=== PATIENT | female | born 1980 | race Caucasian/White ===

== ENCOUNTER 2021-09-27 04:48 | Emergency (ER) | payer OTHER, SELFPAY ==
[2021-09-27] VITALS (7 sets, daily range): BP systolic 123–168; BP diastolic 62–91; PULSE 61–84; RESP 16–18; TEMP 36.6–36.7; O2SAT 92–100; BMI 35.2
--- NOTE | 2021-09-27 04:59 | ECG_ITS ---
APPROVED REPORT Exam: Resting ECG HR:71 bpm ECG Measurements Heart Rate 71 AXES NH 148 P 30 QRSd 86 QRS -2 QT 410 T 30 QTc 445 Conclusion Normal sinus rhythm Late r wave progression Abnormal ECG Electronically signed by : Robbie Nelson MD 09/27/2021 20:21:05
--- NOTE | 2021-09-27 05:08 | CT_ITS ---
PROCEDURE INFORMATION: Exam: CT Abdomen And Pelvis With Contrast Exam date and time: 09/27/2021 5:08 AM Age: 41 years old Clinical indication: Abdominal pain; Prior surgery; Surgery type: Gastric sleeve; Additional info: Ruq pain TECHNIQUE: Imaging protocol: Computed tomography of the abdomen and pelvis with contrast. Radiation optimization: All CT scans at this facility use at least one of these dose optimization techniques: automated exposure control; mA and/or kV adjustment per patient size (includes targeted exams where dose is matched to clinical indication); or iterative reconstruction. Contrast material: ISOVUE; Contrast volume: 75 ml; Contrast route: IV; COMPARISON: CR XR CHEST 2V 09/27/2021 5:06 AM FINDINGS: Lungs: Minimal dependent right basal atelectasis. Liver: Normal. No mass. Gallbladder and bile ducts: Normal. No calcified stones. No ductal dilation. Pancreas: Normal. No ductal dilation. Spleen: Normal. No splenomegaly. Adrenal glands: Normal. No mass. Kidneys and ureters: Normal. No hydronephrosis. Stomach and bowel: Prior gastric surgery. Few colonic diverticula. Appendix: No evidence of appendicitis. Intraperitoneal space: Unremarkable. No free air. No significant fluid collection. Vasculature: Unremarkable. No abdominal aortic aneurysm. Lymph nodes: Unremarkable. No enlarged lymph nodes. Urinary bladder: Unremarkable as visualized. Reproductive: 3.8 cm in greatest dimension right ovarian cyst. Bones/joints: Minor multilevel spondylosis. Soft tissues: Unremarkable. IMPRESSION: 1. No acute abdominal or pelvic visceral pathology. 2. Right ovarian cyst. 3. Minimal dependent right basal atelectasis. 4. Other nonacute findings above.
--- NOTE | 2021-09-27 05:08 | XR_ITS ---
PROCEDURE INFORMATION: Exam: XR Chest Exam date and time: 09/27/2021 5:08 AM Age: 41 years old Clinical indication: Left-sided; Patient HX: Left sided chest pain, nonsmoker, HX of covid; Additional info: Pain under right breast TECHNIQUE: Imaging protocol: XR of the chest. Views: 2 views. COMPARISON: No relevant prior studies available. FINDINGS: Lungs: Unremarkable. No consolidation. Pleural spaces: Unremarkable. No pleural effusion. No pneumothorax. Heart/Mediastinum: Unremarkable. No cardiomegaly. Bones/joints: Unremarkable. IMPRESSION: No acute findings.
[2021-09-27 06:13] LABS: Chloride 103 mmol/L (98-107); Potassium 3.5 mmoL/L (3.5-5.1); Sodium 142 mmol/L (136-145)
[2021-09-27 06:16] LABS: Alanine Aminotransferase 74 U/L (12-78); Alkaline Phosphatase 102 U/L (38-126); Amylase 67 U/L (30-110); Anion Gap 12.5 mEq/L (5-15); Aspartate Amino Transferase 231 U/L (14-36); Bilirubin,Direct 0.3 mg/dl (0.0-0.4); Bilirubin,Total 1.3 mg/dl (0.2-1.3); Bilirubin,Unconjugated 1.1 mg/dL (0.0-1.1); Blood Urea Nitrogen 15 mg/dl (7-17); Calcium 9.6 mg/dl (8.4-10.2); Carbon Dioxide 30 mmol/L (22.0-30.0); Creatinine Clearance Estimated 130 mL/min (50-200); Estimated Glomerular Filt Rate 68 ml/min (>60); GFR (African American) 83 ML/MIN (>60); Glucose 89 mg/dl (74-100)
[2021-09-27 06:17] LABS: Albumin Level 4.5 g/dl (3.5-5.0); Lipase 66 U/L (23-300); Total Protein,Serum 7.6 g/dl (6.3-8.2)
--- NOTE | 2021-09-27 06:17 | HMH.EDGENADL ---
ED Disposition Clinical Impression: Cholelithiasis Qualifiers: Cholelithiasis location: gallbladder Cholecystitis presence: without cholecystitis Biliary obstruction: without biliary obstruction Qualified Code(s): K80.20 - Calculus of gallbladder without cholecystitis without obstruction Abdominal pain Qualifiers: Abdominal location: right upper quadrant Qualified Code(s): R10.11 - Right upper quadrant pain Disposition: Home, Self-Care Condition on Discharge: Good Instructions: DI for Gallstones Additional Instructions: call surg for follow up Referrals: Lidia Man [Primary Care Provider] - Ezequiel Saravia MD [Staff Physician] - Phill Villalba MD [Staff Physician] - - Critical Care Critical Care Time: No Attestation: On 09/27/21, the high probability of a clinically significant, sudden or life threatening deterioration of the following system(s) required my full and direct attention, intervention and personal management. The time I documented below is in addition to time spent performing reported procedures but includes the following listed in this critical care notation. Medical Decision Making - Medical Records Medical records reviewed: Yes: I reviewed the patient's medical records. - Fer Inquiry Pt receiving controlled substance: No Vital Signs: 09/27/21 04:50 09/27/21 05:30 09/27/21 06:01 Temperature 98.0 F Temperature Source Oral Pulse Rate 70 64 Pulse Rate [Right Radial] 74 Respiratory Rate 16 Blood Pressure 168/62 H 123/73 Blood Pressure [Right Arm] 159/84 H Blood Pressure Mean [Right Arm] 109 Blood Pressure Source [Right Arm] Automatic Cuff Blood Pressure Position [Right Arm] Sitting 02 Sat by Pulse Oximetry 98 97 96 Oxygen Delivery Method Room Air Room Air Room Air 09/27/21 06:34 09/27/21 07:00 09/27/21 07:30 Temperature Temperature Source Pulse Rate 62 84 61 Pulse Rate [Right Radial] Respiratory Rate Blood Pressure 138/83 129/70 130/80 Blood Pressure [Right Arm] Blood Pressure Mean [Right Arm] Blood Pressure Source [Right Arm] Blood Pressure Position [Right Arm] 02 Sat by Pulse Oximetry 97 92 L 100 Oxygen Delivery Method Room Air - Lab Data Lab results reviewed: Yes: I reviewed the patient's lab results. Lab Results 09/27/21 05:40: WBC 8.3, RBC 4.82, Hgb 13.9, Hct 41.5, MCV 86.1, MCH 28.8, MCHC 33.5, RDW 13.5, Plt Count 323, MPV 8.9, Neut % (Auto) 72.2, Lymph % (Auto) 23.3, George % (Auto) 3.7, Eos % (Auto) 0.5, Baso % (Auto) 0.3, Neut # (Auto) 6.0, Lymph # (Auto) 1.9, George # (Auto) 0.3, Eos # (Auto) 0.0, Baso # (Auto) 0.0, ESR 17 09/27/21 05:40: Sodium 142, Potassium 3.5, Chloride 103, Carbon Dioxide 30, Anion Gap 12.5, BUN 15, Creatinine 0.90, Estimated Creat Clear 130, Estimated GFR 68, Est GFR ( Amer) 83, Glucose 89, Calcium 9.6, Total Bilirubin 1.3, Direct Bilirubin 0.3, Conjugated Bilirubin 0.0, Indirect Bilirubin 1.0 H, Unconjugated Bilirubin 1.1, AST 231 H, ALT 74, Alkaline Phosphatase 102, Troponin I < 0.01, C-Reactive Protein 1.8, Total Protein 7.6, Albumin 4.5, Amylase 67, Lipase 66, Procalcitonin < 0.030 09/27/21 05:40: Serum HCG, Qual Negative Result diagrams: 09/27/21 05:40 09/27/21 05:40 Orders (Tests/Meds): ED MEDICATIONS Generic Name Dose Route Start Last Admin Trade Name Freq PRN Reason Stop Dose Admin Sodium Chloride 8 ml 09/27/21 05:08 Sodium Chloride 0.9% 10ml Vial IV 10/27/21 05:07 NEEDED PRN dilute pepcid Discontinued Medications Generic Name Dose Route Start Last Admin Trade Name Freq PRN Reason Stop Dose Admin Famotidine 20 mg 09/27/21 05:08 09/27/21 05:40 Famotidine 20mg/2ml Vial IV 09/27/21 05:09 20 mg ONCE ONE Administration Sodium Chloride 1,000 mls @ 999 mls/hr 09/27/21 05:15 09/27/21 05:40 Sod Chlor 0.9% 1000ml Bag IV 09/27/21 06:15 999 mls/hr .Q1H1M HAYDER Administration Iopamidol 75 ml 09/27/21 06:22 09/27/21 06:24 Iopam
[2021-09-27 06:20] LABS: HCG Qualitative, Serum Negative (Negative)
[2021-09-27 06:23] LABS: C-Reactive Protein 1.8 mg/L (0-4)
[2021-09-27 06:24] LABS: Basophils % 0.3 % (0.1-2.0); Eosinophils % 0.5 % (0.1-12.0); Hematocrit 41.5 % (37.0-47.0); Hemoglobin 13.9 g/dL (12.2-16.2); Lymphocytes # 1.9 K/mm3 (0.7-4.5); Lymphocytes % 23.3 % (10-50); Mean Corpuscular HGB Conc 33.5 g/dL (31.8-35.4); Mean Corpuscular Hemoglobin 28.8 pg (27.0-31.2); Mean Corpuscular Volume 86.1 fl (81-99); Mean Platelet Volume 8.9 fl (7.4-10.4); Monocytes # 0.3 K/mm3 (0.1-1.0); Monocytes % 3.7 % (1.7-9.3); Neutrophils % 72.2 % (37.0-80.0); Platelet Count 323 K/mm3 (142-424); Red Blood Count 4.82 M/mm3 (4.20-5.40); Red Cell Distribution Width 13.5 % (11.5-17.5); White Blood Count 8.3 K/mm3 (4.8-10.8)
[2021-09-27 06:32] LABS: Troponin I < 0.01 ng/ml (0.00-0.034)
[2021-09-27 06:50] LABS: Erythrocyte Sedimentation Rate 17 mm/hr (0-20)
--- NOTE | 2021-09-27 06:51 | US_ITS ---
PROCEDURE: US GALLBLADDER CLINICAL INDICATION: rt upper abd pain COMPARISON: CT CT ABDOMEN PELVIS W CON from 09/27/2021 FINDINGS: Pancreas: Pancreas is not well delineated to body habitus and overlying bowel gas. Liver: Unremarkable. There is appropriate direction of blood flow within a non dilated portal vein. Right kidney: Unremarkable appearing. No hydronephrosis. Gallbladder: There are small layering stones within the gallbladder. The gallbladder is slightly distended at 10 x 3.7 cm. No gallbladder wall thickening, pericholecystic fluid, or biliary dilatation. Common bile duct measures 5 mm. IMPRESSION: Cholelithiasis with mild gallbladder distension. No wall thickening, pericholecystic fluid, or biliary dilatation. Dictated by: Melo White MD 09/27/2021 08:22 Melo White MD in [facility] 09/27/2021 08:22
--- NOTE | 2021-09-27 07:14 | PC.NURSE ---
pt resting offers no c/o at present. pt states last po intake yesterday 9pm, hotdog and pie
[2021-09-27 07:42] LABS: Procalcitonin < 0.030 ng/mL (0.0-2.0)
--- NOTE | 2021-09-27 07:50 | PC.NURSE ---
Pt is resting comfortably well in bed.
--- NOTE | 2021-09-27 07:53 | PC.NURSE ---
Pt going to ultra sound.
--- NOTE | 2021-09-27 07:55 | PC.NURSE ---
Spoke with ER per RAD it was okay to take C collar off. Pt is in room resting.
== END 2021-09-27 08:41 | disposition home or self-care (01) ==
PROVIDERS: Emergency Provider Emergency Medicine; PCP Emergency Medicine
DX: K80.20 Calculus of gallbladder without cholecystitis without obstruction (principal); M54.50 Low back pain, unspecified
CPT/HCPCS: 71046; 74177; 76705; 80048; 80076; 82150; 83690; 84145; 84484; 84703; 85025; 85651; 86140; 93005; 96365; 96375; 99283; J2405; Q9967

== ENCOUNTER → 2021-09-30 16:17 | Outpatient (CLI) | payer OTHER, SELFPAY | PROVIDERS: PCP Emergency Medicine; Visit Provider Nurse Practitioner Family | DX: Z01.812 Encounter for preprocedural laboratory examination (principal); Z20.822 Contact with and (suspected) exposure to COVID-19; K80.20 Calculus of gallbladder without cholecystitis without obstruction | CPT/HCPCS: C9803; U0003; U0005 ==

== ENCOUNTER 2021-10-02 07:47 | Day surgery (SDC) | payer OTHER, SELFPAY ==
[2021-09-28 10:58] VITALS: BMI 35.2
[2021-10-02] VITALS (11 sets, daily range): BP systolic 118–140; BP diastolic 74–84; PULSE 53–81; RESP 12–18; TEMP 36.3–43; O2SAT 93–99
--- NOTE | 2021-10-02 08:59 | HMH.ANESCL ---
[facility] Anesthesia Checklist - Patient Identification Patient Identification: Arm Band - Structural Data Admitted From: Home Planned Operative Procedure/s: laparoscopic cholecystectomy Consent for Planned Operative Procedure(s) Verified: Yes Verified Documents: Surgical Consent, History and Physical - NPO Status Verified Time NPO: 00:00 - Additional verifications Anesthesia Reactions: No Hx Blood Transfusions: No Blood Transfusion Reaction: No - Airway Assessment C-Spine Mobility Assessed: Yes (mp2) TMJ Mobility Assessed: Yes Dentition: Good Dentition - Neurological Assessment Level of Consciousness: Awake, Alert - Anesthesia Plan Anesthesia Risk discussed: Yes Anesthesia Plan: Verified ASA Class: II Anesthesia Type: General [facility] History I have reviewed the patient's past medical history: Yes Medical History: Denies:: Cancer, Diabetes Mellitus Type 1, Diabetes Mellitus Type 2, Internal Pacemaker, MRSA, Seizures *Have you ever received a pneumonia vaccine?: No *Have you received a flu vaccine this season?: No Other Medical History: Denies: Blood Transfusion Reaction Anesthesia experience/problems:: nac Other Surgeries: Yes: Diagnostic Lap, Other. No: Pacemaker Amputation: No Fractures: No - *Social History Last grade of school completed: High school graduate Smoking Status: Never smoker Alcohol Intake: current Alcohol Intake Frequency:: holidays/special occasions only Substance Use Type: denies use *Occupational Status:: employed Housing: house Household Members: family *Travel in the last 8 weeks: None Family Hx:: Cancer, Coronary Artery Disease, Diabetes, Heart Attack, Stroke
--- NOTE | 2021-10-02 10:09 | P.OP_ITS ---
Date of procedure: 10/02/21 Pre-op Diagnosis:: Symptomatic gallstones Post-op Diagnosis:: Same Procedure performed:: Laparoscopic cholecystectomy Surgeon:: Ezequiel Saravia MD COMMUNITY OUTREACH DIRECTOR:: Other Anesthesia: GETA Estimated blood loss (mL): 20 Clinical Note:: Patient is a very pleasant 41-year-old female. 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 She had undergone laparoscopic gastric sleeve in September 2018 in [place] by Dr. Alexis Robles. By her own volition prior to that and subsequently after bariatric surgery she has had about an 80 pound weight loss. She states that for some time she is having some occasional pain and discomfort in the right upper quadrant. She describes it similar to a rock in her stomach. About a week or so ago she had an episode of severe pain. On 09/27/2021 she awoke with very severe back pain with associated vomiting and radiation to her back and into her chest area. She was seen and ev aluated in the emergency department. She was found to have an AST of 231. CT scan was unremarkable. She underwent gallbladder ultrasound which revealed mild gallbladder distention with gallstones. Operative findings:: She has a distended gallbladder. She had some omental adhesions to the anterior peritoneal cavity in the right upper quadrant Operative note:: Patient was taken to the operating room. She was given preoperative intravenous antibiotic. In the operating room she was placed in a supine position. General anesthesia was induced via endotracheal tube. Abdomen was prepped and draped in the standard surgical fashion. Subumbilical skin incision was made. Dissection was carried down to fascia. While performing abdominal wall lift Veress needle was inserted and CO2 pneumoperitoneum was achieved to 15 mmHg. A 10 mm trocar was inserted at the umbilicus. Intraperitoneal contents were visualized. She was positioned in reverse Trendelenburg left side down. She had some omental adhesions to the peritoneum in the right upper quadrant. Therefore a 10 mm trocar was placed in the epigastrium. These adhesions were then taken down using QIANA ultrasonic robotic jose. A couple of 5 mm trochars were able to be inserted in the right upper quadrant. Gallbladder is grasped retracted anteriorly and superiorly over the dome of the liver. Infundibulum of the gallbladder was retracted anterior laterally. Dissection was carried out the neck of the gallbladder bluntly incising the visceral peritoneum. Dissection was carried out identifying the cystic duct and cystic artery. Cystic duct was isolated, multiply clipped, and sharply divided. Cystic artery was carefully coagulated with QIANA ultrasonic harmonic jose and then divided. The gallbladder was dissected free from the liver in a retrograde fashion using QIANA ultrasonic harmonic jose. Gallbladder was placed within an Endo Catch retrieval device and removed from the peritoneal cavity via the umbilical trocar site which required some stretching of the fascial incision for delivery. Gallbladder fossa was inspected for hemostasis which was assured. Limited irrigation was per formed. Trochars were then removed as CO2 pneumoperitoneum was evacuated. Fascia at the umbilicus was closed with a couple of interrupted 0 Vicryl sutures. Local anesthetic was infiltrated. Skin incisions were closed with 4-0 Monocryl subcuticular fashion. Steri-Strips and dressings were applied. Condition: stable Disposition: PACU Specimens:: Gallbladder and contents Complications:: None immediately apparent
--- NOTE | 2021-10-02 10:19 | P.PN_ITS ---
[facility] Anesthesia Record Part I Intake, IV Amount: 1,000 Estimated blood loss (mL): 10 Urine output (mL): 0 Blood Pressure: 133/80 SaO2: 94 Pulse Rate: 81 Respiratory Rate: 15 Temperature: 98.7 F Patient is:: Drowsy Stable to PACU at:: 10:23
--- NOTE | 2021-10-02 12:28 | HMH.ANESII ---
[facility] Anesthesia Record Part II Discharge Time: 10:45 Destination: Home PACU nurse assessment reviewed?: Yes Patient Condition:: Good Anesthesia Complications:: None none Swallowing reflex intact?: Yes Cyanosis?: No Blood Pressure: 118/78 Pulse Rate: 58 Temperature: 97.7 F Mental Status: Alert & Oriented Pain level:: 0 Nausea and/or vomitting:: None Intake, IV Amount: 0
== END 2021-10-02 11:15 | disposition home or self-care (01) ==
LOC: OR 07:48
PROVIDERS: PCP Emergency Medicine; Visit Provider Surgery
PROC: 0FT44ZZ Resection of Gallbladder, Percutaneous Endoscopic Approach (ICD-10-PCS; CPT 47562; principal; 2021-10-02 09:15)
DX: K80.20 Calculus of gallbladder without cholecystitis without obstruction (principal); K66.0 Peritoneal adhesions (postprocedural) (postinfection); Z98.84 Bariatric surgery status; Z80.9 Family history of malignant neoplasm, unspecified; Z82.3 Family history of stroke; Z83.3 Family history of diabetes mellitus; Z82.49 Family history of ischemic heart disease and other diseases of the circulatory system
CPT/HCPCS: 47562; 96374; J2405; J2710

== ENCOUNTER 2023-04-07 09:23 | Emergency (ER) | payer OTHER, SELFPAY ==
[2023-04-07 09:24] VITALS: BP 158/86; PULSE 87; RESP 16; TEMP 36.6; O2SAT 98; BMI 40.7
--- NOTE | 2023-04-07 09:42 | EXP.UTC ---
Discharge Plan Disposition Patient Disposition: Home, Self-Care Condition: Good Prescriptions Prescriptions: New doxycycline hyclate 100 mg capsule 100 mg PO BID Qty: 20 0RF clotrimazole [Antifungal Ringworm] 1 % cream 1 applic topical BID 28 Days Qty: 45 1RF Rx Instructions: apply to rash as prescribed No Action liraglutide (weight loss) 3 MG/0.5 ML pen injector 3 mg SQ DAILY Label Comments: INJECT 3MG UNDER THE SKIN ONCE DAILY Referrals Follow up/Referrals: Provider,Referral, MD [Primary Care Provider] - See instructions Activity Restrictions/Add. Instructions Additional Instructions/Restrictions: Use topical cream on rash area as directed Make sure to follow up with your Family Doctor for the results or your Lyme Disease testing they can request the results Follow up with your Family Doctor if no improvement or any worsening of symptoms Return if needed Clinical Impressions Clinical Impression: Tick bite Instructions Patient Instructions: Doxycycline, Lyme Disease Test, DI for Tinea Corporis Discharge ED Provider: Ivone Reed [facility] [place] HPI General Stated complaint: rash,headache from pulling tick off leg Mode of Arrival: Ambulatory Source of Information: Patient Limitations: No Limitations Time Seen by Provider: 04/07/23 09:49 Description of Symptoms (Recalled from Triage Doc. by RN): Patient thinks she may have Lyme disease from a tick bite. Complaint of headache, rash neckache, and joint pain for 1 week. HEENT Symptoms (Recalled from RN notes): No Resp Symptoms (Recalled from RN notes): No Skin Symptoms (Recalled from RN notes): Yes MS Symptoms (Recalled from RN notes): Yes Functional Status (Recalled from RN notes): wnl History of Present Illness Provider Complaint: Patient concerned that she may have lyme disease States that she removed a tick several days ago from the back of her leg that she is unsure how long it had been there States that since removing the tick she has been having muscle and joint pain, headache chills and fatigue States that she has also broken out in rash on her back and neck and left upper leg States Related Data Home Medications Medication Instructions Recorded Confirmed liraglutide (weight loss) 3 mg/0.5 3 mg SQ DAILY Weight loss 09/27/21 10/29/21 mL (18 mg/3 mL) subcut pen injector Previous Rx's Medication Instructions Recorded clotrimazole 1 % topical cream 1 applic topical BID 4 weeks #45 04/07/23 (Antifungal Ringworm) grams doxycycline hyclate 100 mg capsule 100 mg PO BID #20 caps 04/07/23 Allergies Allergy/AdvReac Type Severity Reaction Status Date / Time No Known Allergies Allergy Verified 10/29/21 10:43 Worker's Comp Is this a Worker's Comp case?: No [facility] Disclaimer: The information contained in this section may have been updated after the patient was seen, as this information can be updated by other users. Social History Smoking Status: Never smoker second hand exposure: No alcohol intake: current substance use type: denies use current occupational status: employed Travel in the last 8 weeks: None household members: family housing: house current occupation: [employer] current occupational exposures/hazards: No caffeine: Yes ROS Obtained: Yes All systems reviewed & no additional complaints except as documented and Yes Systems reviewed as appropriate & no additional complaints except as documented Constitutional Constitutional: Reports system reviewed and no additional complaints, except as documented, Reports as per HPI, Reports body ache, Reports fatigue and Reports headache(s) ENT Ears, Nose, Mouth, and Throat: Reports system reviewed and no additional complaints, except as documented, Reports as per HPI and Reports headache(s) Cardiovascular Cardiovascular: Reports system reviewed and no additional complaints, except as documented and Reports as per HPI Respiratory Respirat
[2023-04-08 12:12] LABS: Lyme Ab CIA Positive (Negative); Lyme Ab IgM CIA Positive (Negative); Lyme IgG CIA Positive (Negative)
== END 2023-04-07 10:08 | disposition home or self-care (01) ==
PROVIDERS: Emergency Provider Nurse Practitioner
DX: R51.9 Headache, unspecified (principal); R21 Rash and other nonspecific skin eruption; M25.50 Pain in unspecified joint; T63.481A Toxic effect of venom of other arthropod, accidental (unintentional), initial encounter
CPT/HCPCS: 86618; 99212; G0463

== ENCOUNTER 2024-01-26 19:29 | Outpatient (CLI) | payer OTHER, SELFPAY | END 2024-01-26 23:59 | LOC: LAB.DROPOF 19:29 | PROVIDERS: PCP Student in an Organized Health Care Education/Training Program; Visit Provider Student in an Organized Health Care Education/Training Program | DX: J02.9 Acute pharyngitis, unspecified (principal) | CPT/HCPCS: 87070 ==

== ENCOUNTER 2024-04-23 09:28 | Outpatient (CLI) | payer OTHER, SELFPAY ==
[2024-04-23 18:37] LABS: Basophils % 0.7 % (0.1-2.0); Eosinophils # 0.1 K/mm3 (0.0-0.4); Eosinophils % 1.5 % (0.1-12.0); Hematocrit 35.9 % (37.0-47.0); Hemoglobin 11.3 g/dL (12.2-16.2); Lymphocytes # 1.8 K/mm3 (0.7-4.5); Lymphocytes % 35.7 % (10-50); Mean Corpuscular HGB Conc 31.5 g/dL (31.8-35.4); Mean Corpuscular Hemoglobin 24.1 pg (27.0-31.2); Mean Corpuscular Volume 76.3 fl (81-99); Monocytes # 0.2 K/mm3 (0.1-1.0); Monocytes % 4.5 % (1.7-9.3); Neutrophils # 2.9 K/mm3 (1.8-7.8); Neutrophils % 57.6 % (37.0-80.0); Platelet Count 287 K/mm3 (142-424); Red Blood Count 4.71 M/mm3 (4.20-5.40); Red Cell Distribution Width 16.5 % (11.5-17.5)
[2024-04-23 19:34] LABS: Alanine Aminotransferase 15 U/L (12-78); Albumin Level 3.8 g/dl (3.5-5.0); Albumin/Globulin Ratio 1.2 (1.1-1.8); Alkaline Phosphatase 81 U/L (38-126); Anion Gap 13.4 mEq/L (5-15); Aspartate Amino Transferase 25 U/L (14-36); Bilirubin,Total 0.8 mg/dl (0.2-1.3); Blood Urea Nitrogen 17 mg/dl (7-17); Calcium 9.2 mg/dl (8.4-10.2); Carbon Dioxide 27 mmol/L (22.0-30.0); Chloride 105 mmol/L (98-107); Chol/HDL Ratio 6.1 (1-3.5); Cholesterol 207 mg/dl (140-200); Estimated Glomerular Filt Rate 53 ml/min (>60); GFR (African American) 65 ML/MIN (>60); Globulin 3.2 g/dL (1.3-3.2); Glucose 91 mg/dl (74-100); HDL Cholesterol 34 mg/dl (40-60); Potassium 4.4 mmoL/L (3.5-5.1); Sodium 141 mmol/L (136-145); Triglycerides 194 mg/dl (30-150); VLDL Cholesterol 39 mg/dL (0-40)
[2024-04-23 19:45] LABS: Direct LDL Cholesterol 117.61 mg/dL (100-129)
[2024-04-23 19:46] LABS: 25-OH Vitamin D, Total 25.3 ng/mL (30-100); Free Thyroxine Index 3.9 ug/dL (5.93-13.13); T4 (Thyroxine) 10.8 ug/dl (5.53-11.0); Triiodothryronine (T3) Uptake 36 % (23.5-40.5)
[2024-04-23 19:59] LABS: Thyroid Stimulating Hormone 0.89 uIU/mL (0.465-4.68)
[2024-04-23 20:18] LABS: Hemoglobin A1C 5.8 % (4.0-6.0)
[2024-04-24 07:56] LABS: HIV (1&2) Antibody Rapid NON REACTIVE
[2024-04-25 11:10] LABS: HCV Ab Non Reactive (Non Reactive)
== END 2024-04-23 23:59 | disposition home or self-care (01) ==
LOC: LAB.DROPOF 04-26 09:29
PROVIDERS: PCP Student in an Organized Health Care Education/Training Program; Visit Provider Student in an Organized Health Care Education/Training Program
DX: Z11.59 Encounter for screening for other viral diseases (principal); Z13.21 Encounter for screening for nutritional disorder; Z11.4 Encounter for screening for human immunodeficiency virus [HIV]; E11.9 Type 2 diabetes mellitus without complications; E01.0 Iodine-deficiency related diffuse (endemic) goiter
CPT/HCPCS: 80050; 80053; 80061; 82306; 83036; 84436; 84443; 84479; 85025

== ENCOUNTER 2024-04-28 09:10 | Outpatient (CLI) | payer OTHER, SELFPAY ==
[2024-04-28 19:48] LABS: Chloride 109 mmol/L (98-107); Sodium 141 mmol/L (136-145)
[2024-04-28 19:49] LABS: Potassium 4.4 mmoL/L (3.5-5.1)
[2024-04-28 19:51] LABS: Alanine Aminotransferase 15 U/L (12-78); Alkaline Phosphatase 83 U/L (38-126); Anion Gap 10.4 mEq/L (5-15); Aspartate Amino Transferase 27 U/L (14-36); Bilirubin,Total 0.9 mg/dl (0.2-1.3); Blood Urea Nitrogen 12 mg/dl (7-17); Calcium 9.2 mg/dl (8.4-10.2); Carbon Dioxide 26 mmol/L (22.0-30.0); Estimated Glomerular Filt Rate 60 ml/min (>60); GFR (African American) 72 ML/MIN (>60); Glucose 119 mg/dl (74-100); Iron 52 ug/dL (37-170)
[2024-04-28 19:52] LABS: Albumin Level 3.8 g/dl (3.5-5.0); Albumin/Globulin Ratio 1.2 (1.1-1.8); Globulin 3.2 g/dL (1.3-3.2)
[2024-04-28 20:01] LABS: Total Iron Binding Capacity 419 ug/dL (265-497)
[2024-04-28 20:26] LABS: Ferritin 7.73 ng/ml (6.24-137)
[2024-04-28 21:01] LABS: Vitamin B12 213 pg/mL (239-931)
[2024-04-28 21:03] LABS: Folate 9.31 ng/mL
== END 2024-04-28 23:59 | disposition home or self-care (01) ==
LOC: LAB.DROPOF 04-29 09:10
PROVIDERS: PCP Student in an Organized Health Care Education/Training Program; Visit Provider Student in an Organized Health Care Education/Training Program
DX: D64.9 Anemia, unspecified (principal); R79.89 Other specified abnormal findings of blood chemistry
CPT/HCPCS: 80053; 82607; 82728; 82746; 83540; 83550

== ENCOUNTER 2024-05-03 12:53 | Outpatient (CLI) | payer OTHER, SELFPAY ==
--- NOTE | 2024-05-03 12:53 | MM_ITS ---
PROCEDURE INFORMATION: Exam: MG Bilateral Screening 3D Mammography Exam date and time: 05/03/2024 12:47 PM Age: 44 years old Clinical indication: Screening examination TECHNIQUE: Imaging protocol: Bilateral Screening tomosynthesis and 2D mammography including computer-aided detection (CAD) when performed. COMPARISON: MG MM DIG SCREENING MAMM BI W/CAD 05/03/2024 12:47 PM FINDINGS: MAMMOGRAPHY: Breast composition: There are scattered areas of fibroglandular density. Mass: None. Architectural distortion: None. Calcifications: No suspicious calcifications. Asymmetric density: None. Skin thickening: None. Axillary adenopathy: None. IMPRESSION: No mammographic evidence of malignancy. Annual screening is recommended unless otherwise clinically indicated. ASSESSMENT: BI-RADS Category 1: Negative
--- NOTE | 2024-05-03 12:53 | US_ITS ---
PROCEDURE: US TRANSVAGINAL CLINICAL INDICATION: AUB, abd pain COMPARISON: No exams were available for comparison FINDINGS: Transvaginal sonographic images of the pelvis were obtained. UTERUS: 9.7 cm x 4.3cmx 5.0cm midline with a combined endometrial thickness of 8.1mm. There are several small nabothian cyst. Within the cervix and lower uterine segment there is a mass that measures 4.7 cm x 1.5 cm x 2.0 cm. It has vascular flow. LEFT OVARY: 2.1cmx1.2cmx1.4cm with a volume of 1.8ml. RIGHT OVARY: 3.8 cmx 2.7 cmx2.4cm with a volume of 12.8ml. There is a follicle in the right ovary measuring 1.3 cm. Both ovaries are seen and appear normal. Doppler flow to both ovaries are seen. There is a small amount of fluid in the cul-de-sac. IMPRESSION: 1. Midline uterus normal in shape and size. The endometrium is normal measuring 8.1 mm. 2. Within the cervix and lower uterine segment is a mass measuring 4.7 cm x 1.5 cm x 2.0 cm. It has vascular flow and could represent an endocervical polyp or fibroid. Suggest a gynecology consult. 3. Both ovaries are seen and appear normal. There is a small follicle on the right ovary. 4. There is a small amount of fluid in the cul-de-sac. Dictated by: Amaury Saldaña MD 05/04/2024 05:11 Amaury Saldaña MD in [facility] 05/04/2024 05:11
== END 2024-05-03 23:59 | disposition home or self-care (01) ==
LOC: RAD 12:53
PROVIDERS: PCP Student in an Organized Health Care Education/Training Program; Visit Provider Student in an Organized Health Care Education/Training Program
DX: N93.9 Abnormal uterine and vaginal bleeding, unspecified (principal); R10.11 Right upper quadrant pain; Z12.31 Encounter for screening mammogram for malignant neoplasm of breast
CPT/HCPCS: 76830; 77063; 77067

== ENCOUNTER 2024-05-13 09:08 | Outpatient (CLI) | payer OTHER, SELFPAY ==
--- NOTE | 2024-05-13 09:09 | CT_ITS ---
FINAL REPORT TECHNIQUE: Pre-and postcontrast axial imaging of the abdomen and pelvis was obtained.This study was performed with techniques to keep radiation doses as low as reasonably achievable, (ALARA). Individualized dose reduction technique using automated exposure control or adjustment of mA and/or kV according to the patient's size were employed. CLINICAL HISTORY: abd pain, abd mass, AUB COMPARISON: 05/03/2024 FINDINGS: The lung bases are clear. The liver is enlarged. The gallbladder is absent. The spleen, adrenal glands, and pancreas are unremarkable. There is no hydronephrosis or solid renal mass. On precontrast imaging, no renal stones are identified. Kidneys demonstrate symmetric uptake of contrast. GI tract demonstrates postoperative changes of gastric sleeve. There is no lymphadenopathy or ascites. The appendix is normal. There is no evidence of small bowel obstruction. Remaining GI tract is without acute abnormality. There is a 3.5 cm hypodense left ovarian lesion, likely a functional cyst in a patient of this age. There is prominence of the cervix. Endocervical polyp not excluded. Exam is limited by patient body habitus. Physiologic free fluid is noted. There is no lymphadenopathy. No acute osseous changes are seen. IMPRESSION: Possible endocervical polyp or mass. Body habitus limits exam. Consider MRI of the pelvis with and without contrast using a female pelvis protocol. Enlarged liver. Reviewed, Interpreted and Dictated by Radha Conn MD Transcribed by Niru Wild Authenticated and [facility]
[2024-05-13] MEDS: SODIUM CHLORIDE 0.9% 10ML SYR (RAD ONLY) 10 ML IV (09:35)
[2024-05-13] MEDS: IOPAMIDOL-370 (76%);100ML BOTTLE 75 ML IV (09:35)
== END 2024-05-13 23:59 | disposition home or self-care (01) ==
LOC: RAD 09:09
PROVIDERS: PCP Student in an Organized Health Care Education/Training Program; Visit Provider Student in an Organized Health Care Education/Training Program
DX: R19.00 Intra-abdominal and pelvic swelling, mass and lump, unspecified site (principal); R10.2 Pelvic and perineal pain; N93.9 Abnormal uterine and vaginal bleeding, unspecified
CPT/HCPCS: 74178; Q9967

== ENCOUNTER 2024-06-02 10:18 | Outpatient (CLI) | payer OTHER, SELFPAY ==
[2024-06-02 10:47] LABS: Basophils % 0.6 % (0.1-2.0); Eosinophils % 0.7 % (0.1-12.0); Hematocrit 35.4 % (37.0-47.0); Hemoglobin 10.9 g/dL (12.2-16.2); Lymphocytes # 2.2 K/mm3 (0.7-4.5); Lymphocytes % 35.6 % (10-50); Mean Corpuscular Hemoglobin 23.7 pg (27.0-31.2); Mean Corpuscular Volume 76.5 fl (81-99); Mean Platelet Volume 8.9 fl (7.4-10.4); Monocytes # 0.3 K/mm3 (0.1-1.0); Monocytes % 5.6 % (1.7-9.3); Neutrophils # 3.5 K/mm3 (1.8-7.8); Neutrophils % 57.6 % (37.0-80.0); Platelet Count 311 K/mm3 (142-424); Red Blood Count 4.62 M/mm3 (4.20-5.40); Red Cell Distribution Width 16.5 % (11.5-17.5); White Blood Count 6.2 K/mm3 (4.8-10.8)
[2024-06-02 11:36] LABS: Alanine Aminotransferase 12 U/L (12-78); Albumin Level 3.5 g/dl (3.5-5.0); Albumin/Globulin Ratio 1.1 (1.1-1.8); Alkaline Phosphatase 75 U/L (38-126); Anion Gap 9.3 mEq/L (5-15); Aspartate Amino Transferase 21 U/L (14-36); Bilirubin,Total 0.7 mg/dl (0.2-1.3); Blood Urea Nitrogen 16 mg/dl (7-17); Carbon Dioxide 28 mmol/L (22.0-30.0); Chloride 109 mmol/L (98-107); Estimated Glomerular Filt Rate 67 ml/min (>60); GFR (African American) 82 ML/MIN (>60); Globulin 3.3 g/dL (1.3-3.2); Glucose 84 mg/dl (74-100); Potassium 4.3 mmoL/L (3.5-5.1); Sodium 142 mmol/L (136-145); Total Protein,Serum 6.8 g/dl (6.3-8.2)
[2024-06-02 11:57] LABS: HCG,Quantitative < 2 mIU/ml (0-5.42)
== END 2024-06-02 23:59 | disposition home or self-care (01) ==
LOC: LAB 16:26
PROVIDERS: PCP Student in an Organized Health Care Education/Training Program; Visit Provider Obstetrics & Gynecology
DX: N93.9 Abnormal uterine and vaginal bleeding, unspecified (principal)
CPT/HCPCS: 36415; 80053; 84702; 85025

== ENCOUNTER 2024-06-08 07:24 | Day surgery (SDC) | payer OTHER, SELFPAY ==
[2024-06-08] VITALS (10 sets, daily range): BP systolic 126–155; BP diastolic 75–95; PULSE 53–84; RESP 14–18; TEMP 36.2–37.1; O2SAT 94–100; BMI 40.7
[2024-06-08] MEDS: LACTATED RINGERS 1000ML 1,000 ML 25 ML IV (07:45)
[2024-06-08 07:59] LABS: POC Glucose,Bedside 95 (70-110)
--- NOTE | 2024-06-08 08:41 | P.PNANES_ITS ---
[facility] Disclaimer: The information contained in this section may have been updated after the patient was seen, as this information can be updated by other users. Medical History Lyme disease 2022 Body mass index (BMI) greater than 35 Infertility Diabetes diagnosed in 2015 Cholelithiasis Tick bite Surgical History Hx of cholecystectomy 2021 H/O gastric sleeve 2017 Family History Family/Other No significant family history Social History (Updated 06/08/24 @ 07:47 by Cornelio García RN) Smoking Status: Never smoker second hand exposure: No alcohol intake: never substance use type: denies use current occupational status: employed Travel in the last 8 weeks: None household members: family housing: house current occupation: [employer] current occupational exposures/hazards: No caffeine: Yes [facility] Anesthesia Checklist Patient Identification Patient Identification: Arm Band Structural Data Admitted From: Home Planned Operative Procedure/s: Hysteroscopy, D&C, Possible Myosure Ablation Consent for Planned Operative Procedure(s) Verified: Yes Verified Documents: Surgical Consent and History and Physical NPO Status Verified Time NPO: 00:00 Additional verifications Anesthesia Reactions: No Hx Blood Transfusions: No Blood Transfusion Reaction: No Airway Assessment Mallampati Score:: Class II C-Spine Mobility Assessed: Yes TMJ Mobility Assessed: Yes Dentition: Good Dentition Neurological Assessment Level of Consciousness: Awake, Alert and Appropriate Anesthesia Plan Anesthesia Risk discussed: Yes Anesthesia Plan: Verified ASA Class: II Anesthesia Type: General
--- NOTE | 2024-06-08 09:53 | EXP.ANES.I ---
[facility] Anesthesia Record Part I Anesthesia Record I Intake, IV Amount: 800 Hydration: Adequate Estimated blood loss (mL): 0 Urine output (mL): 0 Blood Pressure: 131/77 SaO2: 94 Pulse Rate: 81 Airway Patency: Patent Respiratory Rate: 14 Temperature: 97.5 F Patient is:: Awake and Stable Stable to PACU at:: 09:51
[2024-06-08 10:01] LABS: POC Glucose,Bedside 82 (70-110)
--- NOTE | 2024-06-08 10:17 | P.OP_ITS ---
Date of procedure: 06/08/24 Pre-op Diagnosis:: 1. Abnormal Uterine Bleeding 2. Endometrial cells on pap smear 3. Cervical mass on TVUS Post-op Diagnosis:: 1. Abnormal Uterine Bleeding 2. Endometrial cells on pap smear 3. Cervical mass on TVUS Procedure performed:: 1. Exam under anesthesia 2. Fractional dilation and curettage 3. Hysteroscopy, dilation, and MyoSure curettage Surgeon:: Alondra Schultz DO Transportation Assistant(s):: Renee Ray PHLEBOTOMY SERVICES TECHNICIAN:: Wyatt Zaragoza Anesthesia: GETA Estimated blood loss (mL): 50 Operative findings:: Findings: -EUA was non revealing secondary to habitus.. There were no significant support defects. -Hysteroscopy revealed diffusely proliferative endometrium Operative note:: The patient was taken back to the OR where general anesthesia was obtained.? She was placed in the dorsal lithotomy position using yellow fin stirrups and sterilely prepped and draped in the usual fashion.? An in and out catheter was used to drain her bladder.? A timeout was performed.? A weighted speculum was used to visualize this cervix, a single-tooth tenaculum was applied to the anterior lip of the cervix. A small serrated curette was used to collect endocervical curettings on a Telfa pad. This was passed off the operative field to be sent to pathology for further evaluation. The cervix was only slightly dilated to allow entry to the ectocervix and hydrodisection was used to get the scope the rest of the way into the cavity. The hysterscope was inserted and identifying structures such as the tubal ostia were difficult to visualize secondary to diffusely proliferative endometrium. The MyoSure device was used to obtain an endometrial curettings sample. The tubal ostia remained obscured. I do believe that I saw the patient's right tubal ostia. Secondary to have being obtained an adequate sample and having distorted anatomy decision was made to conclude the procedure. At the conclusion of the procedure there was a fluid deficit of 145mLs. Total myosure cutting time was 2minutes 20seconds. Following complete removal of the polyps the MyoSure hysteroscope was removed.? The single-tooth tenaculum was removed and there was bleeding noted from the os and tenaculum sites. The cervix was grasped with a ring forcep and hemostasis was noted.? All instruments were removed from the vagina.? All counts were correct, per nursing.? This concluded the procedure, the patient was awakened from anesthesia, and transferred to the PACU in stable condition. Condition: stable Disposition: PACU Specimens:: Endocervical curettings Endometrial curettings Complications:: None
--- NOTE | 2024-06-09 07:46 | EXP.ANES.II ---
[facility] Anesthesia Record Part II Anesthesia Record Part II Discharge Time: 10:32 Destination: Surgical Day Care (OP Surgery) PACU nurse assessment reviewed?: Yes Patient Condition:: Good Anesthesia Complications:: None Swallowing reflex intact?: Yes Airway Patency: Patent Cyanosis?: No Blood Pressure: 147/85 SaO2: 95 Respiratory Rate: 17 Pulse Rate: 84 Temperature: 97.7 F Mental Status: Alert & Oriented Pain level:: 0 Nausea and/or vomitting:: None Intake, IV Amount: 0 Hydration: Adequate
[2024-06-09 07:47] VITALS: BP 147/85; PULSE 84; RESP 17; TEMP 36.5; O2SAT 95
== END 2024-06-08 11:03 | disposition home or self-care (01) ==
PROVIDERS: PCP Student in an Organized Health Care Education/Training Program; Visit Provider Obstetrics & Gynecology
PROC: (CPT 58558; principal; 2024-06-08 08:45)
DX: N93.9 Abnormal uterine and vaginal bleeding, unspecified (principal); R87.618 Other abnormal cytological findings on specimens from cervix uteri; N88.8 Other specified noninflammatory disorders of cervix uteri
CPT/HCPCS: 58558; 82962; J1100; J2250; J2405; J3010; J7120

== ENCOUNTER 2024-06-29 11:22 | Emergency (ER) | payer OTHER, SELFPAY ==
[2024-06-29] VITALS (13 sets, daily range): BP systolic 112–149; BP diastolic 74–95; PULSE 54–76; RESP 16–18; TEMP 36.6–36.9; O2SAT 95–100; BMI 39.9
--- NOTE | 2024-06-29 11:40 | PC.NURSE ---
DR SPRINGER AT BEDSIDE
[2024-06-29 11:52] LABS: Basophils % 0.6 % (0.1-2.0); Eosinophils # 0.1 K/mm3 (0.0-0.4); Eosinophils % 0.7 % (0.1-12.0); Hematocrit 35.5 % (37.0-47.0); Lymphocytes # 1.9 K/mm3 (0.7-4.5); Mean Corpuscular HGB Conc 31.1 g/dL (31.8-35.4); Mean Corpuscular Hemoglobin 24.1 pg (27.0-31.2); Mean Corpuscular Volume 77.6 fl (81-99); Mean Platelet Volume 9.3 fl (7.4-10.4); Monocytes # 0.3 K/mm3 (0.1-1.0); Monocytes % 4.6 % (1.7-9.3); Neutrophils # 4.9 K/mm3 (1.8-7.8); Neutrophils % 67.2 % (37.0-80.0); Platelet Count 338 K/mm3 (142-424); Red Blood Count 4.57 M/mm3 (4.20-5.40); Red Cell Distribution Width 16.4 % (11.5-17.5); White Blood Count 7.2 K/mm3 (4.8-10.8)
[2024-06-29 12:06] LABS: Activated Partial Thrombo Time 27.1 seconds (22.8-30.6); INR 0.92 (0.9-1.1); Prothrombin Time 10.4 seconds (10.1-12.5)
[2024-06-29 12:11] LABS: HCG Qualitative, Serum Negative (Negative)
[2024-06-29 12:13] LABS: Alanine Aminotransferase 16 U/L (12-78); Albumin Level 3.7 g/dl (3.5-5.0); Albumin/Globulin Ratio 1.1 (1.1-1.8); Alkaline Phosphatase 68 U/L (38-126); Aspartate Amino Transferase 27 U/L (14-36); Bilirubin,Total 0.9 mg/dl (0.2-1.3); Blood Urea Nitrogen 16 mg/dl (7-17); Calcium 8.5 mg/dl (8.4-10.2); Carbon Dioxide 24 mmol/L (22.0-30.0); Chloride 109 mmol/L (98-107); Creatinine Clearance Estimated 117 mL/min (50-200); Estimated Glomerular Filt Rate 53 ml/min (>60); GFR (African American) 65 ML/MIN (>60); Globulin 3.4 g/dL (1.3-3.2); Glucose 98 mg/dl (74-100); Sodium 138 mmol/L (136-145); Total Protein,Serum 7.1 g/dl (6.3-8.2)
--- NOTE | 2024-06-29 12:15 | CT_ITS ---
FINAL REPORT TECHNIQUE: Pre-and postcontrast images of the abdomen and pelvis were performed by computed tomography. Extensive 3-D reconstruction images were performed. A CTA was performed. This study was performed with techniques to keep radiation doses as low as reasonably achievable (ALARA). Individualized dose reduction techniques using automated exposure control or adjustment of mA and/or kV according to the patient's size were employed. CLINICAL HISTORY: heavy vaginal bleeding h/o endometrial CA 80 cc of isovue 370 50 cc saline COMPARISON: CT of the abdomen and pelvis dated 05/13/2024 FINDINGS: ABDOMEN AND PELVIS: The lung bases are clear. Precontrast images demonstrate no evidence of nephrolithiasis. No adrenal masses are identified. The liver, spleen and pancreas are unremarkable. The gallbladder has been surgically resected, and there is a gastric sleeve present. The appendix is unremarkable in appearance. There is a prominent cervix of uncertain etiology, with a mass not excluded. This was also seen on the prior exam of May 13. No masses or adenopathy are seen in either the abdomen or pelvis. There is no extravasation to suggest active bleeding. CTA: The abdominal aorta is proper caliber. The SMA, celiac axis, and VENANCIO are patent. There is no significant stenosis or calcification. The renal arteries are patent bilaterally. The iliac arteries are patent bilaterally. No significant vascular stenosis is present. IMPRESSION: Unremarkable CTA of the abdomen and pelvis, specifically no evidence of extravasation to suggest active bleeding is noted. Prominent cervix of uncertain etiology, mass not excluded, stable since the prior exam of May 13. Reviewed, Interpreted and Dictated by Ezequiel Roa III, MD Transcribed by Angelia Givens Authenticated and [facility]
[2024-06-29] MEDS: KETOROLAC 30MG/ML VIAL 15 MG IV (12:17)
--- NOTE | 2024-06-29 12:28 | HMH.EDGENADL ---
Discharge Plan Disposition Patient Disposition: Home, Self-Care Condition: Good Prescriptions Prescriptions: New naproxen 500 mg tablet 500 mg PO BID Qty: 20 0RF No Action cholecalciferol (vitamin D3) 50 mcg (2,000 unit) capsule 50 mcg PO DAILY vitamin T14-cvckdev B1 1,000-100 mg/mL Solution 1 ml IM WEEKLY ferrous sulfate 325 mg (65 mg iron) tablet,delayed release (DR/EC) 325 mg PO DAILY Qty: 30 3RF Referrals Follow up/Referrals: Ama Dalton PA [Primary Care Provider] - See instructions Activity Restrictions/Add. Instructions Additional Instructions/Restrictions: You were evaluated in the emergency department today. 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 Follow-up closely with your [employer] member over the next 72 hours for reassessment. Return to the emergency department right away for new or worsening symptoms. Clinical Impressions Clinical Impression: Abnormal uterine bleeding, Endometrial cancer Stand Alone Forms Stand Alone Forms: Work/School Release Instructions Patient Instructions: DI for Vaginal Bleeding Print Language Print Language: Albanian Discharge ED Provider: Gretchen Cano General Adult HPI General Chief complaint: Vaginal Bleeding Stated complaint: heavy bleeding and cramps Time Seen by Provider: 06/29/24 11:27 Mode of Arrival: Ambulatory Source of Information: Patient Limitations: No Limitations Description of Symptoms (Recalled from ER Triage Doc. by RN): PT WITH ENDOMETRIAL CANCER, REPORTS HEAVY VAGINAL BLEEDING AND CRAMPING. HAS HAD INTERMITTENT SPOTTING SINCE APRIL. HEAVY BLEEDING STARTED FRIDAY AM. REPORTS CHANGING 1 PAD ABOUT EVERY 2 HOURS. History of Present Illness HPI narrative: This patient is a 44-year-old female with a history of obesity, diabetes, and recent diagnosis of endometrial cancer awaiting hysterectomy presented to the emergency department for evaluation with concern for heavy vaginal bleeding. She notes has been bleeding regularly since April, but it acutely worsened on Friday. She notes that she is having heavy bleeding and having to change a pad about every 2 hours. She is having to wear disposable underwear just to be able to sleep at night, as she was soaking through pads frequently. She does note passage of clots in the toilet. She also notes that she has brain fog. 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 She denies chest pain, shortness of breath, or other concerns. She does note to abdominal cramping. She denies any recent vaginal penetration of any kind. Related Data Home Medications ?Medication ?Instructions ?Recorded ?Confirmed cholecalciferol (vitamin D3) 50 50 mcg PO DAILY 05/11/24 06/24/24 mcg (2,000 unit) capsule vitamin Z54-edgguin B1 1,000 1 ml IM WEEKLY 06/08/24 06/24/24 mcg-100 mg/mL injection solution Previous Rx's ?Medication ?Instructions ?Recorded ferrous sulfate 325 mg (65 mg 325 mg PO DAILY #30 tabs 06/08/24 iron) tablet,delayed release naproxen 500 mg tablet 500 mg PO BID #20 tabs 06/29/24 Allergies Allergy/AdvReac Type Severity Reaction Status Date / Time No Known Allergies Allergy Verified 06/24/24 08:21 [facility] Disclaimer: The information contained in this section may have been updated after the patient was seen, as this information can be updated by other users. Medical History Lyme disease Body mass index (BMI) greater than 35 Infertility Diabetes Cholelithiasis Tick bite Surgical History Status post dilation and curettage History of hysteroscopy Hx of cholecystectomy H/O gastric sleeve Family History Family/Other No significant family history Social History Smoking Status: Never smoker second hand exposure: No alcohol intake: never substance use type: denies use current occupational status: employed Travel in the last 8 weeks: None household members: family housing: house current occupation: [employer] current occupational exposures/hazards: No caffeine: Yes ROS Obtained: Yes All systems reviewed & no additional complaints except as documented Physical Exam General General appearance: alert, in no apparent distress and obese Head Head exam: atraumatic and normocephalic Eye Eye exam: Present normal appearance, PERRL and EOMI ENT ENT exam: Present normal exam, normal oropharynx, mucous membranes moist and normal external ear exam Neck Neck exam: Present normal inspection, full ROM and trachea midline; Absent tenderness Chest Chest inspection: Present normal inspection and symmetric chest wall rise; Absent tenderness Respiratory Respiratory exam: Present normal lung sounds bilaterally; Absent respiratory distress, wheezes, stridor or accessory muscle use Cardiovascular Cardiovascular exam: Present regular rate and normal rhythm Abdominal Exam Abdominal exam: Present soft; Absent distention, tenderness or guarding Extremities Exam Extremities exam: Present normal inspection, full ROM and normal capillary refill; Absent tenderness or edema Back Exam Back exam: Present normal inspection and full ROM; Absent tenderness Neurological Exam Neurological exam: Present alert, oriented X3, CN II-XII intact and normal gait; Absent motor sensory deficit Psychiatric Psychiatric exam: Present normal affect and normal mood Skin Skin exam: Present warm and dry Medical Decision Making Medical Records Medical records reviewed: Yes I reviewed the patient's medical records. Fer Inquiry Pt receiving controlled substance: No Vital Signs: 06/29/24 11:23 06/29/24 11:45 06/29/24 12:00 Temperature 98.5 F Temperature Source Oral Pulse Rate 73 69 Pulse Rate [Radial] 76 Respiratory Rate 18 Blood Pressure 137/76 132/75 Blood Pressure [Right Arm] 149/95 H Blood Pressure Mean 96 86 Blood Pressure Mean [Right Arm] 113 Blood Pressure Source Blood Pressure Source [Right Arm] Automatic Cuff Blood Pressure Position Blood Pressure Position [Right Arm] Sitting 02 Sat by Pulse Oximetry 99 100 95 Oxygen Delivery Method Room Air Room Air Room Air 06/29/24 12:15 06/29/24 12:30 06/29/24 12:45 Temperature Temperature Source Pulse Rate 60 68 60 Pulse Rate [Radial] Respiratory Rate 18 16 16 Blood Pressure 123/76 119/79 120/85 Blood Pressure [Right Arm] Blood Pressure Mean Blood Pressure Mean [Right Arm] Blood Pressure Source Blood Pressure Source [Right Arm] Blood Pressure Position Blood Pressure Position [Right Arm] 02 Sat by Pulse Oximetry 96 96 98 Oxygen Delivery Method Room Air Room Air Room Air 06/29/24 13:00 06/29/24 13:15 06/29/24 13:30 Temperature Temperature Source Pulse Rate 58 L 59 L 60 Pulse Rate [Radial] Respiratory Rate Blood Pressure 123/80 123/80 127/81 Blood Pressure [Right Arm] Blood Pressure Mean 96 88 94 Blood Pressure Mean [Right Arm] Blood Pressure Source Blood Pressure Source [Right Arm] Blood Pressure Position Blood Pressure Position [Right Arm] 02 Sat by Pulse Oximetry 98 97 97 Oxygen Delivery Method 06/29/24 13:45 06/29/24 14:00 06/29/24 14:15 Temperature Temperature Source Pulse Rate 60 56 L 54 L Pulse Rate [Radial] Respiratory Rate 16 18 Blood Pressure 127/81 112/75 119/74 Blood Pressure [Right Arm] Blood Pressure Mean 97 Blood Pressure Mean [Right Arm] Blood Pressure Source Blood Pressure Source [Right Arm] Blood Pressure Position Blood Pressure Position [Right Arm] 02 Sat by Pulse Oximetry 97 97 95 Oxygen Delivery Method Room Air Room Air 06/29/24 14:33 Temperature 97.9 F Temperature Source Oral Pulse Rate 54 L Pulse Rate [Radial] Respiratory Rate 18 Blood Pressure 119/74 Blood Pressure [Right Arm] Blood Pressure Mean Blood Pressure Mean [Right Arm] Blood Pressure Source Automatic Cuff Blood Pressure Source [Right Arm] Blood Pressure Position Sitting Blood Pressure Position [Right Arm] 02 Sat by Pulse Oximetry Oxygen Delivery Method Room Air Lab Data Lab results reviewed: Yes I reviewed the patient's lab results. Lab Results 06/29/24 11:42: WBC 7.2, RBC 4.57, Hgb 11.0 L, Hct 35.5 L, MCV 77.6 L, MCH 24.1 L, MCHC 31.1 L, RDW 16.4, Plt Count 338, MPV 9.3, Neut % (Auto) 67.2, Lymph % (Auto) 27.0, [place] % (Auto) 4.6, Eos % (Auto) 0.7, Baso % (Auto) 0.6, Neut # (Auto) 4.9, Lymph # (Auto) 1.9, [place] # (Auto) 0.3, Eos # (Auto) 0.1, Baso # (Auto) 0.0, PT 10.4, INR 0.92, APTT 27.1, Sodium 138, Potassium 4.0, Chloride 109 H, Carbon Dioxide 24, Anion Gap 9.0, BUN 16, Creatinine 1.10 H, Estimated Creat Clear 117, Estimated GFR 53 L, Est GFR ( Amer) 65, Glucose 98, Calcium 8.5, Total Bilirubin 0.9, AST 27, ALT 16, Alkaline Phosphatase 68, Total Protein 7.1, Albumin 3.7, Globulin 3.4 H, Albumin/Globulin Ratio 1.1, Serum HCG, Qual Negative 06/29/24 11:42 06/29/24 11:42 Orders (Tests/Meds): ED MEDICATIONS Discontinued Medications Generic Name Dose Route Start Last Admin Trade Name Wendy PRN Reason Stop Dose Admin Iopamidol 80 ml 06/29/24 12:58 06/29/24 12:59 Iopamidol-370 (76%);100ml Bottle IV 06/29/24 12:59 80 ml ONCE ONE Administration Ketorolac Tromethamine 15 mg 06/29/24 11:36 06/29/24 12:17 Ketorolac 30mg/Ml Vial IV 06/29/24 11:37 15 mg ONCE ONE Administration Sodium Chloride 50 ml 06/29/24 12:58 06/29/24 12:59 0.9 % Sodium Chloride 50 Ml Vial IV 06/29/24 12:59 50 ml ONCE ONE Administration ORDERS Category Date Time Status CT angio abdomen pelvis Stat Cat Scan 06/29/24 12:15 Completed Complete Blood Count Auto Diff Stat Lab 06/29/24 11:42 Completed Comprehensive Metabolic Panel Stat Lab 06/29/24 11:42 Completed PT INR [Prothrombin Time INR] Stat Lab 06/29/24 11:42 Completed PTT [Activated Partial Thrombo Time] Stat Lab 06/29/24 11:42 Completed Serum [HCG Qualitative, Serum] Stat Lab 06/29/24 11:42 Completed Medical Decision Narrative: In summary, this patient is a 44-year-old female presenting to the Emergency Department for evaluation of worsening vaginal bleeding in the setting of recent diagnosis of endometrial cancer. Differential diagnoses considered include but are not limited to hemorrhage, acute blood loss anemia, dysfunctional uterine bleeding, fibroid, bleeding mass. Ruling out the most morbid conditions drove assessment. It should be noted patient's history includes obesity and diabetes which may or may not be at goal therapy. This complicates all aspects of care by increasing patient's risk for morbidity. I reviewed patient's past medical records and noted previous gynecology evaluation by Dr. Schultz and prior D&C 06/08/2024. On exam, the patient is lying in bed in no acute distress with reassuring vital signs on cardiac telemetry. Abdominal exam is benign. I had an interactive discussion with Dr. Schultz and asked what imaging she would prefer, and she advised CT scan. Workup included CBC, CMP, coags, CT angio of the abdomen and pelvis. Patient was given IV Toradol. Pelvic exam was performed. Small amount of bleeding from cervix with blood clot in vaginal vault. No active pooling. I independently interpreted CT scan prior to the radiologist read and noted no obvious acute concerns. Please see their read for final interpretation. Labs were obtained that demonstrated stable chronic anemia. On reassessment, the patient is resting comfortably. Ultimately, I feel we have excluded life-threatening pathology, as she does not have active pooling on pelvic exam, no active extravasation on CTA, and her hemoglobin is stable. Vitals are normal on cardiac telemetry. Given this, I feel that she is appropriate for discharge home with close follow-up with her primary care provider and [employer] member. She was given prescription for naproxen for dysfunctional uterine bleeding as well as instructions for close follow-up. She was discharged in stable condition after all questions were answered very strict return precautions Critical Care Critical Care Time Critical Care Time: No
--- NOTE | 2024-06-29 12:46 | PC.NURSE ---
PT TO CT
[2024-06-29] MEDS: 0.9 % SODIUM CHLORIDE 50 ML VIAL IV (12:59)
[2024-06-29] MEDS: IOPAMIDOL-370 (76%);100ML BOTTLE 80 ML IV (12:59)
== END 2024-06-29 14:37 | disposition home or self-care (01) ==
PROVIDERS: Emergency Provider Emergency Medicine; PCP Student in an Organized Health Care Education/Training Program
DX: N93.9 Abnormal uterine and vaginal bleeding, unspecified (principal); R10.9 Unspecified abdominal pain; C54.1 Malignant neoplasm of endometrium; E11.9 Type 2 diabetes mellitus without complications
CPT/HCPCS: 74174; 80053; 84703; 85025; 85610; 85730; 96374; 99285; J1885; Q9967

== ENCOUNTER 2024-07-29 22:26 | Outpatient (CLI) | payer OTHER, SELFPAY ==
[2024-07-29 22:47] LABS: Blood Urea Nitrogen 19 mg/dl (7-17); Estimated Glomerular Filt Rate 67 ml/min (>60); GFR (African American) 82 ML/MIN (>60)
== END 2024-07-29 23:59 | disposition home or self-care (01) ==
LOC: LAB.DROPOF 22:27
PROVIDERS: PCP Student in an Organized Health Care Education/Training Program; Visit Provider Student in an Organized Health Care Education/Training Program
DX: R79.89 Other specified abnormal findings of blood chemistry (principal)
CPT/HCPCS: 82565; 84520

== ENCOUNTER 2025-01-25 09:23 | Emergency (ER) | payer OTHER, SELFPAY ==
--- NOTE | 2025-01-25 09:38 | ED_ITS ---
Discharge Plan Disposition Patient Disposition: Home, Self-Care Prescriptions Prescriptions: New Eliquis DVT-PE Treat 30D Start 5 mg (74 tabs) tablets,dose pack 5 mg PO BID Qty: 74 0RF apixaban 5 mg tablet 5 mg PO BID Qty: 60 2RF No Action cholecalciferol (vitamin D3) 50 mcg (2,000 unit) capsule 50 mcg PO DAILY oseltamivir 75 mg capsule 75 mg PO BID 5 Days Qty: 10 0RF ddymrohmnilvyyr-twtxifdye-RB [Bromfed DM] 2-30-10 mg/5 mL syrup 5 ml PO Q4-6H PRN (Reason: cold symptoms) Qty: 118 0RF vitamin S85-rzkucda B1 1,000-100 mg/mL Solution 1 ml IM WEEKLY ferrous sulfate 325 mg (65 mg iron) tablet,delayed release (DR/EC) 325 mg PO DAILY Qty: 30 3RF Referrals Follow up/Referrals: Provider,Referral, MD [Primary Care Provider] - See instructions Activity Restrictions/Add. Instructions Additional Instructions/Restrictions: Call your family doctor to establish care for this visit to the emergency department and schedule follow-up within 48 hours to ensure improvement. If you have any worsening of your condition or any other concerning signs or symptoms, return to the emergency department or your primary care doctor for further evaluation. Eliquis 10 mg twice daily for the first 7 days, followed by 5 mg twice daily. Total of 3 months sent to pharmacy, follow-up with your family doctor and your oncologist after this for determination of continuation. Clinical Impressions Clinical Impression: Thrombophlebitis Print Language Print Language: Upper Sorbian Discharge ED Provider: Fermin Luque General Adult HPI General Chief complaint: Extremity Injury, Upper Stated complaint: lump, bruising,pain,heat rt arm Time Seen by Provider: 01/25/25 09:26 History of Present Illness HPI narrative: Please note that above description of symptoms, in this electronic medical record under categorization of recalled from ER triage doctor by RN are reflective of an initial nursing assessment, however, is not reflective of my full history and physical exam that was personally taken and clarified. Consequentially, this preceding description of symptoms, which may include the patient's categorized chief complaint in the EMR, do not reflect my personal clinical impression, and the ultimate description of history of present illness and patient stated complaints should be deferred to this section of the note. Unless stated otherwise or congruent with this section of the note, additional signs, symptoms, or incongruence should be interpreted as inaccurate with my clinical impression. Related Data Home Medications ?Medication ?Instructions ?Recorded ?Confirmed cholecalciferol (vitamin D3) 50 50 mcg PO DAILY 05/11/24 12/27/24 mcg (2,000 unit) capsule vitamin B22-uhfdxis B1 1,000 1 ml IM WEEKLY 06/08/24 12/27/24 mcg-100 mg/mL injection solution Previous Rx's ?Medication ?Instructions ?Recorded ferrous sulfate 325 mg (65 mg 325 mg PO DAILY #30 tabs 06/08/24 iron) tablet,delayed release gtduiletxsratvy-kvzkbvqsmispjxn-RH 5 ml PO Q4-6H PRN cold symptoms 12/27/24 2 mg-30 mg-10 mg/5 mL oral syrup #118 mL (Bromfed DM) oseltamivir 75 mg capsule 75 mg PO BID 5 days #10 caps 12/27/24 apixaban 5 mg (74 tabs) tablets in 5 mg PO BID #74 tabs 01/25/25 a dose pack ([employer] DVT-PE Treat 30D Start) apixaban 5 mg tablet 5 mg PO BID #60 tabs 01/25/25 Allergies Allergy/AdvReac Type Severity Reaction Status Date / Time No Known Allergies Allergy Verified 12/27/24 11:40 [facility] Disclaimer: The information contained in this section may have been updated after the patient was seen, as this information can be updated by other users. Medical History Lyme disease 2022 Body mass index (BMI) greater than 35 Infertility Diabetes diagnosed in 2016 Cholelithiasis Tick bite Surgical History Status post dilation and curettage History of hysteroscopy Hx of cholecystectomy 2021 H/O gastric sleeve 2017 Family History Family/Other No significant family history Social History Smoking Status: Never smoker second hand exposure: No alcohol intake: never substance use type: denies use current occupational status: employed Travel in the last 8 weeks: None household members: family housing: house current occupation: [employer] current occupational exposures/hazards: No caffeine: Yes Have you lived/traveled outside US in past 30 days?: No Contact w/someone who lives/traveled outside US past 30 days?: No Exposure to someone with infectious disease in past 14 days?: No Do you have a fever (greater than 100.4 F or 38 C)?: No Have you tested positive for COVID-19: No Exposed to someone with COVID-19 in past 14 days?: No Do you have a sore throat?: No Do you have a cough?: No Do you have any weakness?: No Do you have any diarrhea?: No Are you experiencing any unusual bleeding?: No Do you have any muscle aches/pain?: No Do you have any abdominal pain?: No Are you experiencing loss of taste or smell?: No Other Medical History Have you received the Flu Vaccine for this season: No Have you received the Pneumonia Vaccine: No ROS Obtained: Yes All systems reviewed & no additional complaints except as documented Physical Exam General General appearance: alert Head Head exam: atraumatic and normocephalic Eye Eye exam: Present normal appearance, PERRL and EOMI Neck Neck exam: Present normal inspection, full ROM and trachea midline Respiratory Respiratory exam: Absent respiratory distress, wheezes, stridor, accessory muscle use or prolonged expiratory phase Cardiovascular Cardiovascular exam: Present other (Pulses equal symmetric in upper and lower extremities) Abdominal Exam Abdominal exam: Present soft; Absent distention, tenderness or pulsatile mass Extremities Exam Extremities exam: Present other (Superficial phlebitis bilateral upper extremities. Right upper extremity and medial/distal humerus, patient has what appears to be palpable cord, erythema, tenderness consistent with either DVT or superficial thrombophlebitis.); Absent edema Neurological Exam Neurological exam: Present alert, oriented X3 and CN II-XII intact; Absent motor sensory deficit Skin Skin exam: Present warm and dry; Absent diaphoresis or erythema Medical Decision Making Medical Records Medical records reviewed: Yes I reviewed the patient's medical records. Screening: Per USPSTF and CDC recommendations, given the prevalence of disease in our region, it is our hospital?s policy to screen for HIV and viral Hepatitis for all patients aged 18 and over and those with ongoing risk factors. Fer Inquiry Pt receiving controlled substance: No Fer was queried for this patient: No Vital Signs: 01/25/25 09:39 Temperature 97.8 F Temperature Source Oral Pulse Rate [Left Radial] 84 Respiratory Rate 20 Blood Pressure [Right Arm] 146/89 H Blood Pressure Mean [Right Arm] 108 02 Sat by Pulse Oximetry 97 Oxygen Delivery Method Room Air Orders (Tests/Meds): ORDERS Category Date Time Status POCUS Point of Care (ER Only) Stat Exams 01/25/25 09:34 Ordered Medical Decision Narrative: 44-year-old female history of uterine cancer currently on chemotherapy presenting with right upper extremity redness, swelling, tenderness. States that she is familiar with phlebitis from her chemotherapy. About 2 weeks prior to this she started having redness and tenderness in her right medial upper arm. Continues to progress, so came in out of concern for DVT. Minimally tender, does not radiate, no shortness of breath, tachycardia, nausea, vomiting, chest pain, etc. History was obtained via conversation with patient. On arrival, patient hemodynamically stable, alert, oriented x4, appropriate, GCS 15, moving all extremities spontaneously, pupils equal and reactive to light. Full physical exam performed and significant for very clinically well-appearing female no acute distress. Speaking full sentences. She has superficial p hlebitis on distal upper extremities, however on the medial upper extremity just proximal to elbow, she does have palpable cord, erythema, warmth consistent with either DVT or thrombophlebitis, whether inflammatory or infectious. No lymphadenopathy. Bedside matdu-gt-briq ultrasound was performed. Patient has thrombophlebitis of her cephalic vein extending from mid humerus down just distal to the elbow. Given this, I feel this is most convincingly thrombophlebitis and occlusion of right cephalic vein in the setting of chemotherapy/vesicant. Because provoked, I feel this is likely going to be a short dose, but patient will be discharged on Eliquis with outpatient follow-up. Because patient at baseline without signs or symptoms of clinical decompensation, deemed appropriate for discharge. Results were relayed to patient who voiced understanding and were agreeable to outpatient management and follow up. I discussed my clinical impression with patient and answered all questions. At this time, the evidence for any other entities in the differential is insufficient to warrant any further testing or ED observation. This was explained as well. Advisory was given that persistent or worsening symptoms require further evaluation. I confirmed the understanding of this discussion. Carpet Or Rug Layer Helper disclaimer Much of this encounter note is an electronic waiter/waitress tourist class spoken language to printed text. Electronic waiter/waitress tourist class of the spoken language may permit errors. Although I have reviewed the note, some errors may still exist. Procedures Limited Ultrasound Indication:: Limited DVT ultrasound Indication: Limited compression ultrasonography of the right upper extremity was performed to evaluate for non-compressibility of the deep veins in the patient. The ultrasound was performed with the following indications, as noted in the H&P: Extremity redness, pain, swelling, palpable cord Identified structures: Right ulnar vein, radial vein, cephalic vein, basilic vein, axillary vein. Findings: Upper extremity: Right UV good compressibility or Non-compressible or Not performed Right RV: Good compressibility or Non-compressible or Not performed Right Cephalic vein: Noncompressible Right Basilic vein: Good compressibility or Non-compressible or Not performed Right Axillary vein: Good compressibility or Non-compressible or Not performed Impression: Thrombophlebitis of right cephalic vein Images were saved to permanent archive The study was technically adequate CPT: 11439-75-BD [id number]-[id number] 84950-68 (complete bilateral study) This study was performed by me, and I personally interpreted all images/videos. Based on my clinical judgement, these images were adequate and did not necessitate further imaging Critical Care Critical Care Time Critical Care Time: No
[2025-01-25 09:39] VITALS: BP 146/89; PULSE 84; RESP 20; TEMP 36.6; O2SAT 97; BMI 40.7
[2025-01-25 10:36] VITALS: BP 146/89; PULSE 84; RESP 20; TEMP 36.6; O2SAT 97
== END 2025-01-25 10:37 | disposition home or self-care (01) ==
PROVIDERS: Emergency Provider Emergency Medicine
DX: I82.611 Acute embolism and thrombosis of superficial veins of right upper extremity (principal)
CPT/HCPCS: 99283

== ENCOUNTER 2025-07-25 13:42 | Outpatient (CLI) | payer OTHER, SELFPAY ==
[2025-07-25 15:36] LABS: Coronavirus 19, PCR Not Detected (NotDetected); Influenza A, PCR Not Detected (NotDetected); Influenza B, PCR Not Detected (NotDetected)
--- OUTSIDE RECORDS SUMMARY | 2025-07-26 10:48 | XMS_ITS ---
Author Organization [facility] Address [address] [place] [address] Care Team Providers Care Biodiesel Operations Manager Name Role Phone AntoineAlondra troncoso Fran DO Unavailable [phone] Ama Dalton Primary Care Provider [phone] Cheryl Gudino MD Unavailable [phone] Active Problems Problem Noted Date Diagnosed Date Class III obesity with body mass index (BMI) of 40.0 or higher 08/30/2024 Endometrial cancer 06/18/2024 Abdominal pannus 05/17/2021 Breast hypertrophy 05/17/2021 Current Treatment and Therapy Plans No current plan information found. Past Treatment and Therapy Plans Oncology Treatment Plan Name Start Date Discontinue Date Treatment Medications Discontinue Reason Plan Provider Cycles CISplatin Every 28 Days x 2 + XRT followed by CARBOplatin / PACLitaxel Every 21 Days x 4 10/11/20 24 03/25/2025 CARBOplatin (Paraplatin) chemo IVPB (by AUC: GOG-COCKCROFT GAULT)CARBOplatin (Paraplatin) IVPB (by AUC: GOG-COCKCROFT GAULT)CISplatin (Platinol) IVPBPACLitaxel (Taxol) IVPB 500 mL Therapy Complete Kelley Huerta MD 5 of 5 cycles started Past Radiation Episodes * VMAT: Midline PelvisOverview* First Treatment Date Last Treatment Date Treatment Site Technique Goal Episode Provider 09/30/2024 11/17/2024 Midline Pelvis VMAT Curative * Linked Problems Endometrial cancer Treatment Courses* Course c1 10/11/2024 - 11/17/2024 Treatment Period Fraction Dose Fractions Total Dose Plans Planned Pelvis A1A4 10/11/2024 - 11/17/2024 180 cGy 4,500 cGy Reference Points Delivered Pelvis 10/11/2024 - 11/17/2024 4,500 cGy * Course IMRT QA 09/30/2024 - 09/30/2024 Treatment Period Fraction Dose Fractions Total Dose Plans Planned Pelvis A1A4 09/30/2024 - 09/30/2024 180 cGy 0 / 1 180 cGy Pelvis A1A5 09/30/2024 - 09/30/2024 180 cGy 0 / 1 180 cGy Reference Points Delivered Verification 09/30/2024 - 09/30/2024 0 cGy Verification1 09/30/2024 - 09/30/2024 0 cGy Resolved Problems Problem Noted Date Diagnosed Date Resolved Date ZENIA (acute kidney injury) 07/21/2024
--- OUTSIDE RECORDS SUMMARY | 2025-07-26 10:48 | XMS_ITS | Clinical Summary ---
Author Organization [facility] Address [address] [place] [address] Care Team Providers Care Assembler Chassis Name Role Phone AntoineAlondra troncoso Fran DO Unavailable [phone] Ama Dalton Primary Care Provider [phone] Cheryl Gudino MD Unavailable [phone] Allergies No known active allergies Medications prochlorperazine (Compazine) 10 MG tabletIndication s:Endometrial cancer Take 1 tablet (10 mg) by mouth every 6 (six) hours if needed for nausea or vomiting. 30 tablet 5 4 Active Additional Information Patient not taking.Reported on 05/18/2025 Omeprazole 20 MG Tablet Delayed Release Dispersible Take 20 mg by mouth 1 (one) time each day if needed. 4 Active Eliquis 5 MG tablet Take 1 tablet by mouth in the morning and 1 tablet before bedtime. 5 Active loratadine (Claritin) 5 MG chewable tablet Chew 1 tablet daily. Active Active Problems Problem Noted Date Diagnosed Date Class III obesity with body mass index (BMI) of 40.0 or higher 08/30/2024 Endometrial cancer 06/18/2024 Abdominal pannus 05/17/2021 Breast hypertrophy 05/17/2021 Resolved Problems Problem Noted Date Diagnosed Date Resolved Date ZENIA (acute kidney injury) 07/21/2024 Encounters Date Type Department Care Team Description 05/18/2025 11:02 AM EDT - 05/18/2025 11:59 PM EDT Hospital Encounter [facility] [id number] [place] [address] Cheryl Gudino MD Endometrial cancer (CMS/HCC) (Primary Dx) Discharge Disposition: Still a Patient 05/18/2025 Travel from Last 3 Months Family History Medical History Relation Name Comments Hypertension Brother Cl Sahni Jr Cancer Father Cl Sahni Sr Chemotherapy Father Cl Sahni Sr Throat cancer Father Cl Sahni Sr Diabetes Mother Doris Hdz Drug abuse Sister Kaci Sahni Relation Name Status Comments Brother Cl Sahni Jr Alive Father Cl Sahni Sr Mother Doris Hdz Alive Sister Kaci Sahni Alive Social History Tobacco Use Types Packs/Day Years Used Date Smoking Tobacco: Never Passive Smoke Exposure: Past Smokeless Tobacco: Never Tobacco Cessation:Counseling Given: Not Answered Alcohol Use Standard Drinks/Week Comments No 0 (1 standard drink = 0.6 oz pur e alcohol) PHQ-2 Answer Date Recorded Patient Health Questionnaire-2 Score 0 03/25/2025 CAGE ASSESSMENT Answer Date Recorded Cage unable to access Not on file 07/21/2024 Cage max number of drinks Not on file 2023 Cage Beverages a week Not on file 07/21/2024 Have you ever felt you should CUT down on your d rinking? 0 07/21/2024 Have you been ANNOYED by people criticizing your drinking? 0 07/21/2024 Have you felt GUILTY about your drinking? 0 07/21/2024 Have you had a drink first t mary in the morning (EYE-FORESTRY SCIENTIST) to steady your nerves or to get rid of a hangover? 0 07/21/2024 CAGE Questionnaire Score 0 024 Comments No Sex and Gender Information Value Date Recorded Sex Assigned at Female 04/27/2021 3:47 PM EDT Legal Sex Female 8:51 PM EDT Gender Identity Female 04/27/2021 3:47 PM EDT Sexual Orientation Straight 04/27/2021 3: 47 PM EDT Last Filed Vital Signs Vital Sign Reading Time Taken Comments Blood Pressure 125/85 05/18/2025 11:25 AM EDT Pulse 67 05/18/2025 11:25 AM EDT Temperature 36.6 C (97.8 F) 02/25/2025 9:18 AM EDT Respiratory Rate 16 05/18/2025 11:25 AM EDT Oxygen Saturation 96% 05/18/2025 11:25 AM EDT Inhaled Oxygen Concentration - - Weight 114 kg (252 lb 3.3 oz) 05/18/2025 11:25 A M EDT Height 170.2 cm (5' 7 ) 02/25/2025 9:18 AM EDT Body Mass Index 39.5 02/25/2025 9:18 AM EDT Plan of Treatment Upcoming Encounters Date Type Department Care Team (Late st Contact Info) Description 08/26/2025 11:20 AM EDT Appointment [facility] [address] [place] [address] 08/26/2025 2:45 PM EDT Office Visit [facility] [address] [place] [address] Kelley Huerta MD [address] [facility] [address] [place] [address] Health Maintenance Due Date Last Done Comments [facility]-HIV Screening 1978 [facility]-Hepatitis C Screening 1978 [facility]-Infant/Child/Adol SDOH Screenings 1978 [id number] Vaccine (#1) 1983 Diabetes: Dental Exam 1988 [facility]- SDOH Screenings 1996 [facility]-Adult SDOH Screenings 1996 [facility]-Hepatitis B Vaccines (1 of 3 - 19+ 3-dose series) 1997 [facility]-Pneumococcal Vaccine: Pediatrics (0 to 5 Years) and At-Risk Patients (6 to 49 Years) (1 of 2 - PCV) 1997 [facility]-Zoster Vaccines (1 of 2) 1997 CT Colonography 2023 Colonoscopy 2023 FIT-DNA 2023 FIT 2023 FOBT 2023 Sigmoidoscopy 2023 [facility]-Colorectal Cancer Screening 2023 [facility]-Diabetes: Hemoglobin A1C 12/16/2024, 10/01/2016, 07/16/2016 [facility]-Influenza Vaccine (#1) 2025 [facility]-Depression Screening 03/25/2026 03/25/2025 [facility]-DTaP,Tdap,and Td Vaccines (2 - Td or Tdap) 04/23/2034 04/23/2024 [facility]-Obesity Intervention Completed 025, 12/17/2024, 11/08/2024, Additional history exists HPV Vaccines Aged Out No longer eligi ble based on patient's age to complete this topic [facility]-HIB Vaccines Aged Out No longer e ligible based on patient's age to complete this topic [facility]-Hepatitis A Vaccines Aged Out No longer eligible based on patient's age to complete this topic [facility]-IPV Vaccines Aged Out No longer e ligible based on patient's age to complete this topic [facility]-Rotavirus Vaccines Aged Out No lo nger eligible based on patient's age to complete this topic Procedures Procedure Name Priority Date/Time Associated Diagnosis Comments HEMOGLOBIN A1C Routine 06/18/2024 2:32 PM EDT Endometrial cancer (CMS/HCC) from Last 3 Months or Most Recently Relevant to Health Maintenance Results * (ABNORMAL) Hemoglobin A1c (06/18/2024 2:32 PM EDT) Hemoglobin A1c 5.8(H) <5.7 % 06/18/2024 4:39 PM EDT [facility] Blood Venous blood specimen / Unknown Venipuncture / Unknown 06/18/2024 2:32 PM EDT 06/18/2024 2:53 PM EDT Narrative [facility] - 06/18/2024 4:39 PM EDT HA1C Interpretive Data: Diagnosis of Diabetes: Diabetic > or = 6.5% Pre-diabetic 5.7 to 6.4% Non-diabetic < or = 5.6% Glycemic Targets for Type I and Type II Diabetics: Non- Adults <7.0% Adults <6.0% Children and Adolescents <7.5% Source: [place] [employer]. Standards of medical care in diabetes,2017. Diabetes Care.2017:40 (suppl 1):S1-S135. HbA1c assay performed by an ion-exchange chromatography method that is certified traceable to the DCCT. us Kelley Huerta MD LAB BLOOD ORDERABLES [facility] [address] [place] [address] from Last 3 Months or Most Recently Relevant to Health Maintenance Additional Health Concerns Infection Onset Date Last Indicated MRSA 06/18/2024 06/18/2024 Insurance AETNA Advance Directives * Full Code (Latest Code Status on File) Date Activated Date Inactivated Comments 07/20/2024 1:00 PM 07/22/2024 1:30 PM Question Answer Comments Patient has decision-making capacity? Yes Care Teams Assembler Chassis Relationship Specialty Start Date End Date Ama Dalton PA [address] [place] [address] PCP - General 06/18/24 Alondra Schultz DO [address] [facility] [address] [place] [address] Resident 06/15/24 Cheryl Gudino MD [id number] [place] [address] Consulting Physician Radiation Oncology 08/30/24
--- OUTSIDE RECORDS SUMMARY | 2025-07-26 10:48 | XMS_ITS | Encounter Summary ---
Author Organization [facility] Address [address] [place] [address] Care Team Providers Care Repairer Kiln Car Name Role Phone Lidia Man Alice Primary Care Provider Unavail able Alondra Schultz DO Unavailable [phone] Ama Dalton Primary Care Provider [phone] Cheryl Gudino MD Unavailable [phone] Encounter Details Date Type Department Care Team (Late Contact Info) Description 05/13/2024 Orders Only External Location [address] [place] [address] Provider, External Social History Tobacco Use Types Packs/Day Years Used Date Smoking Tobacco: Never Alcohol Use Standard Drinks/Week Comments No 0 (1 standard drink = 0.6 oz pur e alcohol) Comments Unknown Sex and Gender Information Value Date Recorded Sex Assigned at Female 04/27/2021 3:47 PM EDT Legal Sex Female 8:51 PM EDT Gender Identity Female 04/27/2021 3:47 PM EDT Sexual Orientation Straight 04/27/2021 3: 47 PM EDT documented as of this encounter Plan of Treatment Upcoming Encounters Date Type Department Care Team (Late Contact Info) Description 08/26/2025 11:20 AM EDT Appointment [facility] [address] [place] [address] 08/26/2025 2:45 PM EDT Office Visit [facility] [address] [facility] [place] [address] Kelley Huerta MD [address] [place] [address] documented as of this encounter Procedures Procedure Name Priority Date/Time Associated Diagnosis Comments CT OUTSIDE IMAGES 05/13/2024 9:21 AM EDT documented in this encounter Results * CT OUTSIDE IMAGES (05/13/2024 9:21 AM EDT) Anatomical Region Laterality Modality Computed Tomogra phy 05/13/2024 9:21 AM EDT us External Provider IMG CT PROCEDURES Final Result documented in this encounter Visit Diagnoses Not on filedocumented in this encounter Additional Health Concerns Infection Onset Date Last Indicated Resolved Time MRSA 06/18/2024 06/18/2024 documented as of this encounter Care Teams Repairer Kiln Car Relationship Specialty Start Date End Date Lidia Man PCP - General 05/17/21 06/17/24 Ama Dalton PA [address] [place] [address] PCP - General 06/18/24 Alondra Schultz DO [address] [facility] [address] [place] [address] Resident 06/15/24 Cheryl Gudion MD [id number] [place] [address] Consulting Physician Radiation Oncology 08/30/24 documented as of this encounter
--- OUTSIDE RECORDS SUMMARY | 2025-07-26 10:48 | XMS_ITS | Encounter Summary ---
Author Organization [facility] Address [address] [place] [address] Care Team Providers Care Career Resource Specialist Name Role Phone Lidia Man Alice Primary Care Provider Unavail able Alondra Schultz DO Unavailable [phone] Ama Dalton Primary Care Provider [phone] Cheryl Gudino MD Unavailable [phone] Encounter Details Date Type Department Care Team (Late Contact Info) Description 05/03/2024 Orders Only External Location [address] [place] [address] Provider, External Social History Tobacco [...] EDT Appointment [facility] Radiology [address] [place] [address] 08/26/2025 2:45 PM EDT Office Visit [facility] Gynecology [address] [facility] [place] [address] Kelley Huerta MD [address] [facility] [address] [place] [address] documented as of this encounter Procedures Procedure Name Priority Date/Time Associated Diagnosis Comments US OUTSIDE IMAGES 05/03/2024 1:22 PM EDT documented in this encounter Results * US OUTSIDE IMAGES (05/03/2024 1:22 PM EDT) Anatomical Region Laterality Modality Ultrasound 05/03/2024 1:22 PM EDT us External Provider IMG US PROCEDURES Final Result documented in this encounter Visit Diagnoses Not on filedocumented in this encounter Additional Health Concerns Infection Onset Date Last Indicated Resolved Time MRSA 06/18/2024 06/18/2024 documented as of this encounter Care Teams Career Resource Specialist Relationship Specialty Start Date End Date Magda Lidia A PCP - General 05/17/21 06/17/24 Ama Dalton PA [address] [place] [address] PCP - General 06/18/24 Alondra Schultz DO [address] [facility] [address] [place] [address] Resident 06/15/24 Cheryl Gudino MD [address] [facility] [address] [place] [address] Consulting Physician Radiation Oncology 08/30/24 documented as of this encounter
--- OUTSIDE RECORDS SUMMARY | 2025-07-26 10:48 | XMS_ITS | Patient Health Record ---
Author Organization [facility] Address [address] [facility] [address] [place] [address] Care Team Providers Care Fire Information Officer Name Role Phone Ramonita Walls Unavailable [phone] Reason For Referral No Information Social History Social History Sexual History: Social Info Question Answer Notes Sexual History Had sex in the past 12 months (vaginal, oral, or anal)? Yes Drugs/Alcohol: Social Info Question Answer Notes Drugs Have you used drugs other than those for medical reasons in the past 12 months? No Alcohol Screen Did you have a drink containing alcohol in the past year? Yes Points 0 Interpretation Negative Tobacco Use: Social Info Question Answer Notes Tobacco Use/Smoking Are you a former smoker Tobacco use other than smoking: Are you an other tobac co user? No Problems Problem Type SNOMED Code ICD Code Onset Dates Problem Status W/U Status Risk Notes Problem Oligomenorrhea (72992462) Oligomenorrhe a, unspecified (N91.5) Active confirmed OLIGOMENORRHEA Problem Discharge from nipple (53864008) Bilateral nipple discharge (N64.52) Active confirmed NIPPLE DISCHARGE Problem Adult health examination (708546073) Adult general medical exam (Z00.00) Active confirmed ANNUAL EXAM Plan Of Treatment No Information Medical (General) History Medical History History ICD Code Ovarian cysts MENSTR FLOW: Heavy SOCIAL HX: non smoker. denies drug or al cohol use. SOCIAL HX: non smoker. denies drug or al cohol use. Surgical History Surgery Date(Month/Year) Exploratory surgery-07/2006
--- OUTSIDE RECORDS SUMMARY | 2025-07-26 10:48 | XMS_ITS | Encounter Summary ---
Author Organization [facility] Address [address] [place] [address] Care Team Providers Care Engineer Third Assistant Name Role Phone Lidia Man Alice Primary Care Provider Unavail able Alondra Schultz DO Unavailable [phone] Ama Dalton Primary Care Provider Cheryl Gudino MD Unavailable [phone] Encounter Details Date Type Department Care Team (Late st Contact Info) Description 06/17/2024 Lab Requisition [facility] [address] [place] [address] Kelley Huerta MD [address] [facility] [address] [place] [address] Other abnormal findings in specimens from female genital organs Social History Tobacco Use Types Packs/Day Years Used Date Smoking Tobacco: Never Alcohol Use Standard Drinks/Week Comments No 0 (1 standard drink = 0.6 oz pur e alcohol) PHQ-2 Answer Date Recorded Patient Health Questionnaire-2 Score 0 06/18/2024 Comments Unknown Sex and Gender Information Value Date Recorded Sex Assigned at Female 04/27/2021 3:47 PM EDT Legal Sex Female 8:51 PM EDT Gender Identity Female 04/27/2021 3:47 PM EDT Sexual Orientation Straight 04/27/2021 3: 47 PM EDT documented as of this encounter Functional Status * Over the past 2 weeks, how often have you been bothered by any of the following problems? Question Answer Date of Assessment Author Little interest or pleasure in doing things Not at all 06/18/2024 1:07 PM EDT Talita Polk Feeling down, depressed, or hopeless Not at all 06/18/2024 1:07 PM EDT Talita Polk Patient Health Questionnaire -2 Score 0 06/18/2024 1:07 PM EDT Talita Polk documented as of this encounter Plan of Treatment Upcoming Encounters Date Type Department Care Team (Late st Contact Info) Description 08/26/2025 11:20 AM EDT Appointment [facility] [address] [place] [address] 08/26/2025 2:45 PM EDT Office Visit [facility] Gyne[facility] [address] [place] [address] Kelley Huerta MD [address] [place] [address] documented as of this encounter Procedures Procedure Name Priority Date/Time Associated Diagnosis Comments SURGICAL PATHOLOGY CONSULT Routine 06/17/2024 11:06 AM EDT Other abnormal findings in specimens from female genital organs documented in this encounter Results * Surgical Pathology Consult (06/17/2024 11:06 AM EDT) Case Report Sugical Pathology Consult Case: [id number] Authorizing Provider: Kelley Huerta MD Collected: 06/17/2024 1106 Ordering Location: [facility] Lab Received: 06/17/2024 1107 Pathologist: Mainor Sweeney MD Specimen: Cervix, [id number] 06/22/2024 8:49 AM EDT [facility] Addendum Per report, MLH1 promoter methylation analysis performed at a reference laboratory was positive, consistent with a sporadic tumor. 06/22/2024 8:49 AM EDT [facility] Addendum electronically signed by Mainor Sweeney MD on 06/22/2024 at 0849 EDT Final Diagnosis ENDOCERVIX AND ENDOMETRIUM, CURETTAGE (CASE COLLECTED 06/08/2024): - ENDOMETRIOID CARCINOMA OF ENDOMETRIUM, FIGO GRADE 1. - BACKGROUND ENDOMETRIAL INTRAEPITHELIAL NEOPLASIA IDENTIFIED. - TUMOR CELLS SHOW LOSS OF MLH1 AND PMS2 NUCLEAR STAINING ON REVIEWED MMR PROTEIN IMMUNOSTAIN PANEL. SEE COMMENT. - TUMOR SHOWS WILD-TYPE p53 EXPRESSION. 06/22/2024 8:49 AM EDT [facility] at 1453 EDT Comment Per report, an MLH1 promoter methylation study has been ordered. The outside pathology laboratory will be contacted for results, which will be issued in an addendum when received. Free-floating endometrial carcinoma is noted in sections of endocervical curettage. There is no histologic evidence of tumor involving cervical stroma. 06/22/2024 8:49 AM EDT [facility] Clinical Information R87.89 - Other abnormal findings in specimens from female genital organs [ICD-10-CM] 06/22/2024 8:49 AM EDT [facility] Gross Description A. [id number] Received along with a corresponding pathology report from [facility] are 17 slides labeled outside case: [id number] collected on 06/08/2024. 06/22/2024 8:49 AM EDT [facility] Note: A resident was involved in the service. I attest I examined the relevant preparations for the specimens and confirmed the diagnosis or interpretation. 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
== END 2025-07-25 23:59 | disposition home or self-care (01) ==
LOC: LAB.DROPOF 07-26 10:46
PROVIDERS: PCP Student in an Organized Health Care Education/Training Program; Visit Provider Student in an Organized Health Care Education/Training Program
DX: J06.9 Acute upper respiratory infection, unspecified (principal); J02.9 Acute pharyngitis, unspecified
CPT/HCPCS: 87631